=== PATIENT | male | born 1960 | race African-American/Black ===

== ENCOUNTER → 2018-07-02 | Outpatient (CLI) | payer MEDICAID ==
[2016-01-29 09:50] VITALS: BP 128/76
--- NOTE | 2018-07-02 18:11 | RAD ---
HAND LEFT 3V History: POST TRAUMATIC OSTEOARTHRITIS FROM INJURY 15 YEARS AGO/ Patient here for disability determination and said he CANNOT open his hand at anytime that it is clenched permanently for 15 years.. Comparison: None are available The hand is held in a fist, patient states he cannot open the fist. This limits evaluation, particularly of phalanges and metacarpals. Mild degenerative changes are seen. No definite acute fracture. No evidence of gross dislocation. One of the proximal phalanges demonstrate some thickening and widening on the lateral view, may be old fracture deformity. IMPRESSION: Limited exam, no obvious acute fracture. Electronically signed by: Dixon Francois MD (07/02/2018 6:07 PM) [id number]
== END | disposition home or self-care (01) ==
LOC: RAD 15:15
PROVIDERS: ATTEND Pediatrics
DX: M19.142 Post-traumatic osteoarthritis, left hand (principal)
CPT/HCPCS: 73130